=== PATIENT | female | born 1940 | race Caucasian/White ===

== ENCOUNTER 2017-10-02 09:02 | Inpatient (IN) | payer OTHER ==
[~2017-10-02] VITALS: Ht 162.6 cm; Wt 89.4 kg
[2017-10-02 09:02] VITALS: BP_SYST 211
[~2017-10-02 09:02] MED LIST: ATEN100T44 PO; BENA40TA65 PO; GLYB5TAB7 PO; NOR10 PO; SIMV40TA2 PO
[2017-10-02] MEDS ORDERED: NACL 0.9% 1,000 ML IV ONE ×2 (09:09→09:15)
[2017-10-02] MEDS ORDERED: NITROGLYCERIN 1 INCH (GM) OINT. TP ONE (09:15)
[2017-10-02] MEDS ORDERED: MORPHINE 2 MG/ML INJ. SYRINGE IVP ONE (09:15)
[2017-10-02] MEDS ORDERED: METOPROLOL TARTRATE 25 MG TABLET PO ONE (09:15)
[2017-10-02] MEDS ORDERED: ASPIRIN 81 MG TAB.CHEW PO ONE (09:15)
[2017-10-02 09:33] LABS: BASOPHILS % (AUTO) 0.4 % (0.0-2.0); EOSINOPHILS # (AUTO) 0.1 K/uL (0.0-0.4); EOSINOPHILS % (AUTO) 1.7 % (0.0-4.0); HEMATOCRIT 42.7 % (36-48); HEMOGLOBIN 13.8 g/dL (12.0-16.0); LYMPHOCYTES # (AUTO) 2.8 K/uL (1.0-5.5); LYMPHOCYTES % (AUTO) 33.3 % (20.5-51.5); MEAN CORPUSCULAR HEMOGLOBIN 29 pg (27-31); MEAN CORPUSCULAR HGB CONC 32 % (32-36); MEAN CORPUSCULAR VOLUME 89 fL (79.0-98.0); MONOCYTES # (AUTO) 0.7 K/uL (0.0-1.0); MONOCYTES % (AUTO) 7.9 % (1.7-9.3); NEUTROPHILS # (AUTO) 4.7 K/uL (1.8-7.7); NEUTROPHILS % (AUTO) 56.7 % (40.0-70.0); PLATELET COUNT (AUTO) 214 K/uL (130-430); RED BLOOD CELL COUNT(AUTO) 4.81 MIL/uL (4.2-6.2); RED CELL DISTRIBUTION WIDTH 14.6 % (9.0-15.0); WHITE BLOOD COUNT (AUTO) 8.3 K/uL (4.8-10.8)
[2017-10-02] MEDS ORDERED: LORazepam 2 MG/ML VIAL (FOR ER USE) IVP ONE (09:45)
[2017-10-02 09:51] LABS: ANION GAP 12 (5-15); CALCIUM 9.9 mg/dL (8.4-11.0); CHLORIDE 102 mmol/L (98-107); CREATININE 0.86 mg/dL (0.55-1.30); GLUCOSE 190 mg/dL (70-99); POTASSIUM 3.9 mmol/L (3.5-5.1); SODIUM SERUM 140 mmol/L (136-145); UREA NITROGEN, BLOOD 14 mg/dL (8-21)
[2017-10-02 09:56] LABS: PROTHROMBIN TIME 9.7 SECS (9.5-12.5)
[2017-10-02 10:00] LABS: ALANINE AMINOTRANSFERASE 28 U/L (12-78); ALBUMIN 4.2 g/dL (3.4-4.8); ASPARTATE AMINOTRANSFERASE 18 U/L (10-37); TOTAL BILIRUBIN 0.6 mg/dL (0.0-1.0)
[2017-10-02] MEDS ORDERED: ASPI81TA2 PO (10:23)
[2017-10-02] MEDS ORDERED: ALEN70TA51 PO (10:23)
[2017-10-02] MEDS ORDERED: HYDR-3908 PO (10:26)
[2017-10-02] MEDS ORDERED: METO200T3 PO (10:26)
[2017-10-02] MEDS ORDERED: FAMO20TA98 PO (10:26)
[2017-10-02] MEDS ORDERED: FAMO10VI13 IV (10:26)
[2017-10-02] MEDS ORDERED: cloNIDine HCL 0.1 MG TABLET PO PRN (10:30)
[2017-10-02 11:00] VITALS: BP_SYST 143
[2017-10-02] MEDS ORDERED: GLIM2TAB2 PO (11:46)
[2017-10-02] MEDS ORDERED: CHOL200019 PO (13:57)
[2017-10-02 15:28] VITALS: BP_SYST 126
[2017-10-02 20:00] VITALS: BP_SYST 144
[2017-10-03 00:12] VITALS: BP_SYST 131
[2017-10-03 08:10] VITALS: BP_SYST 171
[2017-10-03] MEDS ORDERED: METOPROLOL SUCCINATE 50 MG TAB.SR.24H (TOPROL XL) PO SCH (09:00)
[2017-10-03] MEDS ORDERED: ASPIRIN 81 MG TAB.CHEW PO SCH (09:00)
[2017-10-03] MEDS ORDERED: BENAZEPRIL HCL 20 MG TABLET (LOTENSIN) PO SCH (09:00)
[2017-10-03] MEDS ORDERED: FAMOTIDINE 20 MG TABLET PO SCH (09:00)
[2017-10-03] MEDS ORDERED: GLIMEPIRIDE 2 MG TABLET PO SCH (09:00)
[2017-10-03] MEDS ORDERED: amLODIPine BESYLATE 10 MG TABLET PO SCH (09:00)
[2017-10-03] MEDS ORDERED: SIMVASTATIN 40 MG TABLET PO SCH (09:00)
[2017-10-03] MEDS ORDERED: INSULIN REGULAR, HUMAN 100 UNITS/ML, 10 ML VIAL (novoLIN R) SUBCUT PRN (09:15)
[2017-10-03] MEDS ORDERED: DEXTROSE 50% JECT 50 ML DISP.SYRIN IVP PRN (09:15)
[2017-10-03] MEDS ORDERED: ENALAPRILAT DIHYDRATE 1.25 MG/ML VIAL IVP PRN (10:15)
[2017-10-03] MEDS ORDERED: hydrALAZINE HCL 20 MG/ML VIAL IVP PRN (10:15)
[2017-10-03] MEDS ORDERED: REGADENOSON 0.4 MG/5 ML SYRINGE IVP ONE (11:00)
[2017-10-03 12:20] VITALS: BP_SYST 176
[2017-10-03 16:13] VITALS: BP_SYST 157
[2017-10-03 18:18] VITALS: BP_SYST 157
== END 2017-10-03 18:35 | disposition home or self-care (01) | DRG 313 ==
LOC: SED 09:02 → STU 10:17
PROVIDERS: ADMIT Internal Medicine Hospice and Palliative Medicine; ATTEND Internal Medicine Hospice and Palliative Medicine
DX: R07.89 Other chest pain (principal); I25.10 Atherosclerotic heart disease of native coronary artery without angina pectoris; E11.9 Type 2 diabetes mellitus without complications; I10 Essential (primary) hypertension; R01.1 Cardiac murmur, unspecified; Z96.641 Presence of right artificial hip joint; E78.5 Hyperlipidemia, unspecified; Z82.49 Family history of ischemic heart disease and other diseases of the circulatory system; Z95.5 Presence of coronary angioplasty implant and graft; Z87.891 Personal history of nicotine dependence; Z90.49 Acquired absence of other specified parts of digestive tract; Z79.899 Other long term (current) drug therapy; Z79.82 Long term (current) use of aspirin
CPT/HCPCS: 36415; 71045; 80053; 82962; 83880; 84484; 85025; 85379; 85610-TC; 85730-TC; 93005; 93306; 96361; 96374; 96375; 99285; A9500; J1815; J2060; J2270; J2785; J7030

== ENCOUNTER 2018-02-13 19:13 | Inpatient (IN) | payer OTHER ==
[~2018-02-13] VITALS: Ht 162.6 cm; Wt 86.2 kg
[~2018-02-13 19:13] MED LIST changes: +ASPI-1155 PO; -ATEN100T44 PO; +CHOL200019 PO; +FAMO-132 PO; +GLIM2TAB2 PO; -GLYB5TAB7 PO; +HYDR-3908 PO; +METO200T3 PO
[2018-02-13 19:15] VITALS: BP_SYST 184
--- NOTE | 2018-02-13 19:15 | NUR ---
Placed in room 1 . Placed on phototypesetting equipment monitor, blood pressure machine and pulse oximeter. To gown for exam. Side rails up. Report given to Brent MOSES.
--- NOTE | 2018-02-13 19:20 | NUR ---
#22 gauge angiocath placed to LAC. Use of asceptic technique. Opsite placed over site. Blood return noted. Blood for lab drawn from site. Flushed with 10 cc of normal saline. No evidence of infiltration noted. Patient tolerated well.
--- NOTE | 2018-02-13 19:20 | NUR ---
Patient ambulatory to ED a/o x 4 with c/o left sided chest pain radiating to back. Reports pain is 9/10 sharp unprovoked pain. -SOB -N/V/D. Patient has Hx of cardiac Stents placed in 2009 and 2010. No increased work of breathing. Afebrile.
[2018-02-13] MEDS ORDERED: NITROGLYCERIN 0.4 MG TAB.SUBL SL ONE (20:15)
[2018-02-13] MEDS ORDERED: ASPIRIN 81 MG TAB.CHEW PO ONE (20:15)
[2018-02-13 20:18] LABS: BASOPHILS % (AUTO) 0.5 % (0.0-2.0); EOSINOPHILS # (AUTO) 0.1 K/uL (0.0-0.4); HEMATOCRIT 39.5 % (36-48); HEMOGLOBIN 13.6 g/dL (12.0-16.0); LYMPHOCYTES # (AUTO) 2.6 K/uL (1.0-5.5); LYMPHOCYTES % (AUTO) 36.1 % (20.5-51.5); MEAN CORPUSCULAR HEMOGLOBIN 31 pg (27-31); MEAN CORPUSCULAR HGB CONC 34 % (32-36); MEAN CORPUSCULAR VOLUME 90 fL (79.0-98.0); MONOCYTES # (AUTO) 0.6 K/uL (0.0-1.0); MONOCYTES % (AUTO) 7.7 % (1.7-9.3); NEUTROPHILS # (AUTO) 3.9 K/uL (1.8-7.7); NEUTROPHILS % (AUTO) 53.7 % (40.0-70.0); PLATELET COUNT (AUTO) 233 K/uL (130-430); RED BLOOD CELL COUNT(AUTO) 4.38 MIL/uL (4.2-6.2); RED CELL DISTRIBUTION WIDTH 13.6 % (9.0-15.0); WHITE BLOOD COUNT (AUTO) 7.2 K/uL (4.8-10.8)
--- NOTE | 2018-02-13 20:24 | NUR ---
Radiology at bedside for CXR.
[2018-02-13 20:30] LABS: ANION GAP 9 (5-15); CALCIUM 9.5 mg/dL (8.4-11.0); CHLORIDE 102 mmol/L (98-107); CREATININE 0.94 mg/dL (0.55-1.30); GLUCOSE 228 mg/dL (70-99); POTASSIUM 3.9 mmol/L (3.5-5.1); SODIUM SERUM 137 mmol/L (136-145); UREA NITROGEN, BLOOD 17 mg/dL (8-21)
[2018-02-13 20:35] LABS: PROTHROMBIN TIME 9.8 SECS (9.5-12.5)
[2018-02-13 20:37] LABS: ALANINE AMINOTRANSFERASE 29 U/L (12-78); ALBUMIN 4.1 g/dL (3.4-4.8); ASPARTATE AMINOTRANSFERASE 21 U/L (10-37); TOTAL BILIRUBIN 0.4 mg/dL (0.0-1.0)
--- NOTE | 2018-02-13 21:20 | NUR ---
Patient report relief of chest pain after administration of nitroglycerin tablet. No reports 4/10 pain. Tolerable level for patient.
[2018-02-13 21:38] LABS: BILIRUBIN,URINE NEGATIVE (NEGATIVE); BLOOD, URINE NEGATIVE (NEGATIVE); CLARITY/URINE CLEAR (CLEAR); COLOR,URINE YELLOW (YELLOW); GLUCOSE,URINE NEGATIVE (NEGATIVE); KETONES,URINE NEGATIVE (NEGATIVE); LEUKOCYTE ESTERASE ,URINE 1+ (NEGATIVE); NITRITE, URINE NEGATIVE (NEGATIVE); PH,URINE 5.5 (5.0-8.0); PROTEIN URINE NEGATIVE (NEGATIVE); UROBILINOGEN,URINE 0.2 (0.2-1.0)
[2018-02-13] MEDS ORDERED: NITROGLYCERIN 1 INCH (GM) OINT. TP ONE (21:45)
[2018-02-13] MEDS ORDERED: cefTRIAXone 1 GM IVPB PREMIX 50 ML IV ONE (21:45)
[2018-02-13 21:46] LABS: BACTERIA,URINE FEW /HPF (None Seen); MUCUS,URINE None Seen /LPF (None Seen); RBC,URINE 0-3 /HPF (0-3)
[2018-02-13] MEDS ORDERED: OMEG1CAP PO (21:51)
--- NOTE | 2018-02-13 22:00 | NUR ---
Medication reconciliation completed with information provided by patient. Any prior medication reconciliation on file was reviewed and corrected.
--- NOTE | 2018-02-13 22:30 | NUR ---
End of life care decisions discussed with patient by Dr. Macias. Opportunity for questions and concerns addressed. Patient's code status is Full Code paperwork completed and placed in chart.
--- NOTE | 2018-02-13 22:40 | NUR ---
Patient will be admitted to care of Dr. Machado. Admitted to Telemetry unit. Will go to room 135. Belongings list completed. Summary report printed. Report will be given at bedside. Transfer to Telemetry via ACLS protocol. Licensed nurse present. IV present no signs or symptoms of infiltration.
--- NOTE | 2018-02-13 22:45 | NUR ---
ADMISSION NOTE Received patient from ER via no, received report from MICHEAL MOSES. Patient admitted with diagnosis of chest pain. Patient oriented to hospital routine, call light, toileting and safety-patient verbalized understanding.
[2018-02-13 22:49] VITALS: BP_SYST 170
--- NOTE | 2018-02-13 23:10 | NUR ---
OPENING NOTES Bedside report received from admit nurse. Patient received lying in bed, states that chest pain is 3/10 but tolerable at this time. Breathing is even and unlabored. Patient was transferred from admit room, 135, to her room 130. Patient was able to walk from [facility] to her bed with minimal assistance. Patient denies feeling dizzy or light headed. Call light with patient, instructed to call for any assistance, patient verbalized understanding. Bed alarm is on. Bed is locked and at lowest position. Will continue to monitor.
--- NOTE | 2018-02-14 00:50 | NUR ---
CALLED DR DIAMOND RE:HIGH BP, DIET ORDER, ACCUCHECK AND SLIDING SCALE Dr. Diamond informed about patient's high BP. ordered Catapres 0.1 Q4H PRN for systolic above 160. also made aware that patient doesn't have orders for diet, accucheck, and sliding scale. Dr. Diamond stated that it can be taken care of in the morning. Will carry out orders.
[2018-02-14] MEDS ORDERED: cloNIDine HCL 0.1 MG TABLET PO PRN (01:00)
[2018-02-14 01:06] VITALS: BP_SYST 174
[2018-02-14 02:00] VITALS: BP_SYST 133
--- NOTE | 2018-02-14 02:00 | NUR ---
CALLED DR DIAMOND RE: PAIN MED/REASSESS BP Spoke with Dr. Diamond and informed him that patient is complaining of left arm pain at this time. Dr. Diamond ordered 400 mg Motrin PO PRN. Will carry out order. Patient was reassessed at this time, BP is at 133/66. All of patient's needs met at this time. Call light with patient. Bed alarm on. Will continue to monitor.
[2018-02-14] MEDS: IBUPROFEN 400 MG TABLET PO PRN ×2 (02:25→16:32)
--- NOTE | 2018-02-14 04:00 | NUR ---
ROUNDS Patient in bed sleeping at this time. No s/s of acute distress noted. Breathing is even and unlabored. Call light with patient. Bed alarm on. Will continue to monitor.
[2018-02-14] MEDS ORDERED: DEXTROSE 50% JECT 50 ML DISP.SYRIN IVP PRN (05:45)
[2018-02-14] MEDS ORDERED: INSULIN REGULAR, HUMAN 100 UNITS/ML, 10 ML VIAL (novoLIN R) SUBCUT PRN (05:45)
--- NOTE | 2018-02-14 05:46 | NUR ---
SPOKE WITH FANY FOR CONSULT WITH DR BARRON.
--- NOTE | 2018-02-14 05:50 | NUR ---
ROUNDS Patient sleeping comfortably at this time. No signs of discomfort noted. Chest rise and fall even bilaterally. Call light with patient. Bed alarm on. Will continue to monitor.
--- NOTE | 2018-02-14 06:54 | NUR ---
CLOSING NOTES Patient in bed resting at this time. No s/s of acute distress noted. Breathing is even and unlabored. Patient denies any pain. All of patient's needs met throughout shift. IV site is patent, no signs of infiltration or infection. Skin is warm and dry to touch. No s/s of hypoglycemia. Fall and safety precautions maintained throughout shift. Will continue to monitor until patient care is endorsed to oncoming day shift nurse.
--- NOTE | 2018-02-14 07:40 | NUR ---
OPENING NOTE: MORNING REPORT WAS TAKEN FROM [employer]IDE SALES REPRESENTATIVE NURSE. PATIENT IS ALERT AND ORIENTED X4. MORNING VITALS AND ASSESSMENT WAS DONE. BLOOD PRESSURE LITTLE ELEVATED. WILL GIVE BLOOD PRESSURE MEDS THEN REASSESS. PATIENT NOT COMPLAINING OF CHEST PAIN. ONLY OF PAIN IN LEFT ARM BUT NOT AT MOMENT. PATIENT NOT COMPLAINING OF SHORTNESS OF BREATH. PATIENT IS ON ROOM AIR. PATIENT IS NOT COMPLAINING OF NAUSEA OR VOMITING. PATIENT NOT COMPLAINING OF CONSTIPATION. EDUCATED PATIENT ON IMPORTANCE OF BED ALARM BUT REFUSED TO HAVE IT ON. CALL LIGHT IS IN REACH AND BED IS IN LOWEST POSITION. WILL CONTINUE TO MONITOR.
[2018-02-14 08:04] VITALS: BP_SYST 164
[2018-02-14] MEDS ORDERED: ASPIRIN 81 MG TAB.CHEW PO SCH ×2 (09:00→21:00)
[2018-02-14] MEDS ORDERED: FAMOTIDINE 20 MG TABLET PO SCH (09:00)
[2018-02-14] MEDS ORDERED: BENAZEPRIL HCL 20 MG TABLET (LOTENSIN) PO SCH (09:00)
[2018-02-14] MEDS ORDERED: amLODIPine BESYLATE 10 MG TABLET PO SCH (09:00)
--- NOTE | 2018-02-14 09:04 | NUR ---
: DR. RAMIREZ CALLED AND ASKED WHAT'S GOING ON WITH PATIENT. GAVE UPDATED ON PATIENT.
[2018-02-14 09:24] LABS: CHOLESTEROL 181 mg/dL (<200); HDL CHOLESTEROL 67 mg/dL (>55); LDL CHOLESTEROL 84 mg/dL (<100); TRIGLYCERIDES 182 mg/dL (30-150)
--- NOTE | 2018-02-14 09:28 | NUR ---
: TALKED TO DR. DIAMOND. TOLD HIM PATIENT SAID SHE TAKES HER ASPIRIN AT NIGHT AND THAT SHE TAKES 4 MG INSTEAD OF 2 OF HER GLIMEPIRIDE. SAID IT WAS OKAY FOR ME TO CHANGE IT.
--- NOTE | 2018-02-14 09:30 | NUR ---
OPENING NOTE: MORNING REPORT WAS TAKEN FROM [employer]IC[employer] SPECIALIST NURSE. PATIENT IS ALERT AND ORIENTED X4. MORNING VITALS AND ASSESSMENT WAS DONE. BLOOD PRESSURE LITTLE ELEVATED. WILL GIVE BLOOD PRESSURE MEDS THEN REASSESS. PATIENT NOT COMPLAINING OF CHEST PAIN. ONLY OF PAIN IN LEFT ARM BUT NOT AT MOMENT. PATIENT NOT COMPLAINING OF SHORTNESS OF BREATH. PATIENT IS ON ROOM AIR. PATIENT IS NOT COMPLAINING OF NAUSEA OR VOMITING. PATIENT NOT COMPLAINING OF CONSTIPATION. EDUCATED PATIENT ON IMPORTANCE OF BED ALARM BUT REFUSED TO HAVE IT ON. CALL LIGHT IS IN REACH AND BED IS IN LOWEST POSITION. WILL CONTINUE TO MONITOR.
--- NOTE | 2018-02-14 10:29 | NUR ---
NOTE: RECHECK PATIENT'S BLOOD PRESSURE AFTER MORNING MEDICATIONS. WENT DOWN TO 153/76. PATIENT HAS NO COMPLAINTS OF DISTRESS. GAVE PATIENT SOME TOILETRIES PER REQUEST. WILL CONTINUE TO MONITOR.
[2018-02-14] MEDS ORDERED: GLIMEPIRIDE 2 MG TABLET PO SCH ×2 (11:30)
[2018-02-14 12:15] VITALS: BP_SYST 145
--- NOTE | 2018-02-14 12:22 | NUR ---
NOTE: PATIENT SITTING IN BED WITH NO SIGNS OF DISTRESS. FIXED PATIENT'S IV EARLIER BECAUSE TAPE WAS BUGGING HER. PATIENT SAID IT IS NO LONGER BUGGING HER. PATIENT HAS NO FURTHER REQUESTS. WILL CONTINUE TO MONITOR.
--- NOTE | 2018-02-14 14:02 | NUR ---
NOTE: CHECKED IN ON PATIENT TO SEE IF SHE NEEDED ANYTHING. PATIENT SAID SHE WANTED CHOCOLATE BUT KNOWS SHE CANT HAVE ANY. PATIENT RELAXING IN BED WITH NO SIGNS OF DISTRESS. WILL CONTINUE TO MONITOR.
[2018-02-14 16:20] VITALS: BP_SYST 132
--- NOTE | 2018-02-14 16:36 | NUR ---
NOTE: WENT TO CHECK ON PATIENT TO SEE HOW SHE WAS DOING. PATIENT WAS COMPLAINING OF PAIN IN LEFT ARM/RIB AND HEADACHE. GAVE PATIENT IBUPROFEN. PATIENT WANTED SNACK SO GAVE HER CHOCOLATE PUDDING. PATIENT HAS NOT FURTHER REQUEST AT MOMENT. WILL CONTINUE TO MONITOR.
--- NOTE | 2018-02-14 18:07 | NUR ---
MD: WAS PAGED TO GET DISCHARGE ORDER FOR PATIENT.
--- NOTE | 2018-02-14 18:10 | NUR ---
: DR. ORTIZ CALLED BACK AND SAID IT WAS OKAY FOR PATIENT TO BE DISCHARGED.
[2018-02-14 18:18] VITALS: BP_SYST 145
--- NOTE | 2018-02-14 18:40 | NUR ---
D/C Patient Patient given medication reconciliation form and D/C instructions. Exit Care provided. Patient verbalized understanding. MD discussed with patient the results and treatment provided. Ambulatory with steady gait for discharge to home. Patient in stable condition, ID band removed. IV catheter removed, intact and dressing applied, no active bleeding. Patient educated on pain management. All belongings sent with patient. Patient was wheeled out to front by me and safety put in car.
== END 2018-02-14 18:40 | disposition home or self-care (01) | DRG 313 ==
LOC: SED 19:13 → STU 22:23
PROVIDERS: ADMIT Internal Medicine Hospice and Palliative Medicine; ATTEND Internal Medicine Hospice and Palliative Medicine
DX: R07.89 Other chest pain (principal); I25.10 Atherosclerotic heart disease of native coronary artery without angina pectoris; E11.9 Type 2 diabetes mellitus without complications; I10 Essential (primary) hypertension; Z96.649 Presence of unspecified artificial hip joint; M19.90 Unspecified osteoarthritis, unspecified site; E78.5 Hyperlipidemia, unspecified; Z90.49 Acquired absence of other specified parts of digestive tract; Z90.710 Acquired absence of both cervix and uterus; Z95.5 Presence of coronary angioplasty implant and graft
CPT/HCPCS: 36415; 71045; 80053; 80061; 81000-TC; 82550-TC; 82962; 83880; 84484; 85025; 85610-TC; 85730-TC; 87086; 93005; 96365; 99285; J0696

== ENCOUNTER 2018-04-11 04:40 | Inpatient (IN) | payer OTHER ==
[~2018-04-11] VITALS: Ht 162.6 cm; Wt 90.4 kg
[2018-04-11 04:40] VITALS: BP_SYST 152
[~2018-04-11 04:40] MED LIST changes: -HYDR-3908 PO; -METO200T3 PO; +OMEG1CAP PO
[2018-04-11] MEDS ORDERED: NACL 0.9% 1,000 ML IV ONE (04:51)
[2018-04-11] MEDS ORDERED: ATEN-168 PO (04:56)
[2018-04-11] MEDS ORDERED: GABA-529 PO (04:56)
[2018-04-11] MEDS ORDERED: MORPHINE 2 MG/ML INJ. SYRINGE IVP ONE (05:00)
[2018-04-11 06:39] LABS: BILIRUBIN,URINE NEGATIVE (NEGATIVE); BLOOD, URINE NEGATIVE (NEGATIVE); CLARITY/URINE CLEAR (CLEAR); COLOR,URINE YELLOW (YELLOW); GLUCOSE,URINE NEGATIVE (NEGATIVE); KETONES,URINE 1+ (NEGATIVE); LEUKOCYTE ESTERASE ,URINE NEGATIVE (NEGATIVE); NITRITE, URINE NEGATIVE (NEGATIVE); PH,URINE 5.5 (5.0-8.0); PROTEIN URINE NEGATIVE (NEGATIVE); UROBILINOGEN,URINE 0.2 (0.2-1.0)
[2018-04-11 06:46] LABS: ANION GAP 7 (5-15); CALCIUM 9.1 mg/dL (8.4-11.0); CHLORIDE 103 mmol/L (98-107); CREATININE 0.85 mg/dL (0.55-1.30); GLUCOSE 204 mg/dL (70-99); POTASSIUM 3.7 mmol/L (3.5-5.1); SODIUM SERUM 135 mmol/L (136-145); UREA NITROGEN, BLOOD 17 mg/dL (8-21)
[2018-04-11 06:51] LABS: ALANINE AMINOTRANSFERASE 31 U/L (12-78); ALBUMIN 3.7 g/dL (3.4-4.8); ASPARTATE AMINOTRANSFERASE 18 U/L (10-37); TOTAL BILIRUBIN 0.9 mg/dL (0.0-1.0)
[2018-04-11 06:53] LABS: BASOPHILS # (AUTO) 0.1 K/uL (0.0-0.2); BASOPHILS % (AUTO) 0.4 % (0.0-2.0); EOSINOPHILS % (AUTO) 0.2 % (0.0-4.0); HEMATOCRIT 42.3 % (36-48); HEMOGLOBIN 13.5 g/dL (12.0-16.0); LYMPHOCYTES # (AUTO) 1.6 K/uL (1.0-5.5); LYMPHOCYTES % (AUTO) 11.2 % (20.5-51.5); MEAN CORPUSCULAR HEMOGLOBIN 29 pg (27-31); MEAN CORPUSCULAR HGB CONC 32 % (32-36); MEAN CORPUSCULAR VOLUME 91 fL (79.0-98.0); MONOCYTES # (AUTO) 1.1 K/uL (0.0-1.0); MONOCYTES % (AUTO) 8.1 % (1.7-9.3); NEUTROPHILS # (AUTO) 11.3 K/uL (1.8-7.7); NEUTROPHILS % (AUTO) 80.1 % (40.0-70.0); PLATELET COUNT (AUTO) 222 K/uL (130-430); RED BLOOD CELL COUNT(AUTO) 4.64 MIL/uL (4.2-6.2); RED CELL DISTRIBUTION WIDTH 12.7 % (9.0-15.0)
[2018-04-11 07:00] LABS: WHITE BLOOD COUNT (AUTO) 14.1 K/uL (4.8-10.8)
[2018-04-11 07:02] LABS: PROTHROMBIN TIME 10.2 SECS (9.5-12.5)
[2018-04-11] MEDS ORDERED: CIPROFLOXACIN LACT 400 MG/D5W 200 ML IV SCH ×2 (08:00→21:00)
[2018-04-11] MEDS ORDERED: PANTOPRAZOLE SODIUM 40 MG/VIAL (PROTONIX) IVP ONE (08:00)
[2018-04-11] MEDS ORDERED: CIPROFLOXACIN LACT 400 MG/D5W 200 ML IV ONE ×3 (08:04→21:22)
[2018-04-11] MEDS ORDERED: DEXTROSE 50% JECT 50 ML DISP.SYRIN IVP PRN (08:45)
[2018-04-11] MEDS: amLODIPine BESYLATE 10 MG TABLET PO SCH (09:00)
[2018-04-11] MEDS: GABAPENTIN 100 MG CAPSULE PO SCH ×2 (09:00→21:00)
[2018-04-11 09:08] VITALS: BP_SYST 159
[2018-04-11] MEDS: PANTOPRAZOLE SODIUM 40 MG/VIAL (PROTONIX) IVP SCH ×2 (10:21→21:27)
[2018-04-11] MEDS: FAMOTIDINE 20 MG TABLET PO SCH (10:21)
[2018-04-11] MEDS: ATENOLOL 50 MG TABLET (TENORMIN) PO SCH (10:22)
[2018-04-11] MEDS: BENAZEPRIL HCL 20 MG TABLET (LOTENSIN) PO SCH (10:23)
[2018-04-11] MEDS: NACL 0.9% 1,000 ML IV SCH ×2 (10:23→18:45)
[2018-04-11] MEDS: INSULIN REGULAR, HUMAN 100 UNITS/ML, 10 ML VIAL (novoLIN R) SUBCUT PRN ×3 (11:49→23:59)
[2018-04-11 12:13] LABS: HEMOGLOBIN 13.6 g/dL (12.0-16.0)
[2018-04-11] MEDS ORDERED: DIATR MEGLU/DIATRIZ SOD 30 ML SOLUTION PO ONE (12:50)
[2018-04-11 13:16] VITALS: BP_SYST 140
[2018-04-11] MEDS ORDERED: IOHEXOL 100 ML IV ONE (14:20)
[2018-04-11 16:13] VITALS: BP_SYST 138
[2018-04-11 17:53] LABS: HEMATOCRIT 42.5 % (36-48); HEMOGLOBIN 13.5 g/dL (12.0-16.0)
[2018-04-11 20:30] VITALS: BP_SYST 137
[2018-04-11] MEDS: SIMVASTATIN 40 MG TABLET PO SCH (21:26)
[2018-04-12] MEDS: NACL 0.9% 1,000 ML IV SCH ×3 (00:01→20:33)
[2018-04-12 00:33] LABS: HEMATOCRIT 38.9 % (36-48); HEMOGLOBIN 12.6 g/dL (12.0-16.0)
[2018-04-12 00:49] VITALS: BP_SYST 147
[2018-04-12] MEDS: INSULIN REGULAR, HUMAN 100 UNITS/ML, 10 ML VIAL (novoLIN R) SUBCUT PRN ×2 (06:00→12:13)
[2018-04-12 06:51] LABS: HEMATOCRIT 36.4 % (36-48)
[2018-04-12] MEDS: PANTOPRAZOLE SODIUM 40 MG/VIAL (PROTONIX) IVP SCH ×2 (08:25→20:34)
[2018-04-12] MEDS: BENAZEPRIL HCL 20 MG TABLET (LOTENSIN) PO SCH (08:25)
[2018-04-12] MEDS: ATENOLOL 50 MG TABLET (TENORMIN) PO SCH (08:26)
[2018-04-12] MEDS: FAMOTIDINE 20 MG TABLET PO SCH (08:26)
[2018-04-12] MEDS: GABAPENTIN 100 MG CAPSULE PO SCH ×2 (08:27→20:35)
[2018-04-12] MEDS: amLODIPine BESYLATE 10 MG TABLET PO SCH (08:27)
[2018-04-12 08:41] VITALS: BP_SYST 138
[2018-04-12] MEDS: LEVOFLOXACIN 500 MG/D5W 100 ML IV SCH (10:08)
[2018-04-12] MEDS ORDERED: MORPHINE 2 MG/ML INJ. SYRINGE IVP PRN (10:15)
[2018-04-12] MEDS: metroNIDAZOLE 500 mg/NS 100 ML IV SCH ×3 (11:19→20:39)
[2018-04-12 12:02] VITALS: BP_SYST 147
[2018-04-12 13:07] LABS: HEMATOCRIT 36.1 % (36-48); HEMOGLOBIN 11.9 g/dL (12.0-16.0)
[2018-04-12 16:02] VITALS: BP_SYST 145
[2018-04-12 19:00] VITALS: BP_SYST 130
[2018-04-12 20:00] VITALS: BP_SYST 130
[2018-04-12] MEDS: SIMVASTATIN 40 MG TABLET PO SCH (20:35)
[2018-04-13 00:43] VITALS: BP_SYST 135
[2018-04-13] MEDS: NACL 0.9% 1,000 ML IV SCH ×2 (06:01→20:17)
[2018-04-13] MEDS: metroNIDAZOLE 500 mg/NS 100 ML IV SCH (06:01)
[2018-04-13 07:18] LABS: BASOPHILS # (AUTO) 0.1 K/uL (0.0-0.2); BASOPHILS % (AUTO) 0.5 % (0.0-2.0); EOSINOPHILS # (AUTO) 0.2 K/uL (0.0-0.4); EOSINOPHILS % (AUTO) 1.3 % (0.0-4.0); HEMOGLOBIN 11.1 g/dL (12.0-16.0); LYMPHOCYTES # (AUTO) 2.5 K/uL (1.0-5.5); LYMPHOCYTES % (AUTO) 18.4 % (20.5-51.5); MEAN CORPUSCULAR HEMOGLOBIN 30 pg (27-31); MEAN CORPUSCULAR HGB CONC 33 % (32-36); MEAN CORPUSCULAR VOLUME 92 fL (79.0-98.0); MONOCYTES % (AUTO) 7.1 % (1.7-9.3); NEUTROPHILS # (AUTO) 9.7 K/uL (1.8-7.7); NEUTROPHILS % (AUTO) 72.7 % (40.0-70.0); PLATELET COUNT (AUTO) 162 K/uL (130-430); RED CELL DISTRIBUTION WIDTH 12.8 % (9.0-15.0); WHITE BLOOD COUNT (AUTO) 13.5 K/uL (4.8-10.8)
[2018-04-13 07:24] LABS: ANION GAP 9 (5-15); CALCIUM 8.3 mg/dL (8.4-11.0); CHLORIDE 109 mmol/L (98-107); CREATININE 0.75 mg/dL (0.55-1.30); GLUCOSE 138 mg/dL (70-99); POTASSIUM 3.2 mmol/L (3.5-5.1); SODIUM SERUM 143 mmol/L (136-145); UREA NITROGEN, BLOOD 6 mg/dL (8-21)
[2018-04-13 08:00] VITALS: BP_SYST 130
[2018-04-13] MEDS: PANTOPRAZOLE SODIUM 40 MG/VIAL (PROTONIX) IVP SCH ×2 (08:41→20:18)
[2018-04-13] MEDS: ATENOLOL 50 MG TABLET (TENORMIN) PO SCH (08:42)
[2018-04-13] MEDS: FAMOTIDINE 20 MG TABLET PO SCH (08:42)
[2018-04-13] MEDS: BENAZEPRIL HCL 20 MG TABLET (LOTENSIN) PO SCH (08:43)
[2018-04-13] MEDS: amLODIPine BESYLATE 10 MG TABLET PO SCH (08:43)
[2018-04-13] MEDS: LEVOFLOXACIN 500 MG/D5W 100 ML IV SCH (08:44)
[2018-04-13] MEDS: GABAPENTIN 100 MG CAPSULE PO SCH ×3 (08:48→20:23)
[2018-04-13] MEDS: LEVOFLOXACIN 250 MG TABLET PO SCH (10:00)
[2018-04-13] MEDS: INSULIN REGULAR, HUMAN 100 UNITS/ML, 10 ML VIAL (novoLIN R) SUBCUT PRN ×2 (11:19→17:16)
[2018-04-13 11:23] VITALS: BP_SYST 138
[2018-04-13] MEDS: metroNIDAZOLE 500 MG TABLET PO SCH (14:34)
[2018-04-13 15:49] VITALS: BP_SYST 153
[2018-04-13 19:55] VITALS: BP_SYST 131
[2018-04-13] MEDS: SIMVASTATIN 40 MG TABLET PO SCH (20:18)
[2018-04-13] MEDS: LACTOBACILLUS RHAMNOSUS GG 1 CAP CAPSULE PO SCH (20:18)
[2018-04-13] MEDS ORDERED: POTASSIUM CHLORIDE 40 MEQ in NS 250 ML IV SCH (21:30)
[2018-04-14] MEDS: metroNIDAZOLE 500 MG TABLET PO SCH ×2 (00:06→05:38)
[2018-04-14 00:08] VITALS: BP_SYST 134
[2018-04-14] MEDS ORDERED: KCL 40 mEq in 100 mL (PREMIX) 100 ML IV ONE (00:09)
[2018-04-14 06:26] LABS: BASOPHILS # (AUTO) 0.1 K/uL (0.0-0.2); BASOPHILS % (AUTO) 0.7 % (0.0-2.0); EOSINOPHILS # (AUTO) 0.3 K/uL (0.0-0.4); EOSINOPHILS % (AUTO) 2.5 % (0.0-4.0); HEMATOCRIT 32.4 % (36-48); HEMOGLOBIN 11.1 g/dL (12.0-16.0); LYMPHOCYTES # (AUTO) 2.4 K/uL (1.0-5.5); LYMPHOCYTES % (AUTO) 22.2 % (20.5-51.5); MEAN CORPUSCULAR HEMOGLOBIN 31 pg (27-31); MEAN CORPUSCULAR HGB CONC 34 % (32-36); MEAN CORPUSCULAR VOLUME 91 fL (79.0-98.0); MONOCYTES # (AUTO) 0.8 K/uL (0.0-1.0); MONOCYTES % (AUTO) 7.6 % (1.7-9.3); NEUTROPHILS # (AUTO) 7.1 K/uL (1.8-7.7); PLATELET COUNT (AUTO) 172 K/uL (130-430); RED BLOOD CELL COUNT(AUTO) 3.55 MIL/uL (4.2-6.2); RED CELL DISTRIBUTION WIDTH 12.9 % (9.0-15.0); WHITE BLOOD COUNT (AUTO) 10.7 K/uL (4.8-10.8)
[2018-04-14 06:53] LABS: ALANINE AMINOTRANSFERASE 18 U/L (12-78); ALBUMIN 2.9 g/dL (3.4-4.8); ANION GAP 8 (5-15); ASPARTATE AMINOTRANSFERASE 13 U/L (10-37); CALCIUM 8.5 mg/dL (8.4-11.0); CHLORIDE 111 mmol/L (98-107); CREATININE 0.73 mg/dL (0.55-1.30); GLUCOSE 135 mg/dL (70-99); POTASSIUM 3.9 mmol/L (3.5-5.1); SODIUM SERUM 144 mmol/L (136-145); TOTAL BILIRUBIN 0.5 mg/dL (0.0-1.0); UREA NITROGEN, BLOOD 6 mg/dL (8-21)
[2018-04-14 07:40] VITALS: BP_SYST 157
[2018-04-14] MEDS: LACTOBACILLUS RHAMNOSUS GG 1 CAP CAPSULE PO SCH (08:34)
[2018-04-14] MEDS: GABAPENTIN 100 MG CAPSULE PO SCH (08:35)
[2018-04-14] MEDS: FAMOTIDINE 20 MG TABLET PO SCH (08:35)
[2018-04-14] MEDS: amLODIPine BESYLATE 10 MG TABLET PO SCH (08:36)
[2018-04-14] MEDS: BENAZEPRIL HCL 20 MG TABLET (LOTENSIN) PO SCH (08:37)
[2018-04-14] MEDS: PANTOPRAZOLE SODIUM 40 MG/VIAL (PROTONIX) IVP SCH (08:37)
[2018-04-14] MEDS: ATENOLOL 50 MG TABLET (TENORMIN) PO SCH (08:37)
[2018-04-14 10:13] VITALS: BP_SYST 148
[2018-04-14] MEDS ORDERED: METR500T PO (10:22)
[2018-04-14] MEDS ORDERED: LEVO250T2 PO (10:24)
[2018-04-14] MEDS ORDERED: LACT1CAP57 PO (10:26)
[2018-04-14] MEDS ORDERED: FAMO20TA8 PO (10:27)
[2018-04-14] MEDS: LEVOFLOXACIN 250 MG TABLET PO SCH (10:54)
[2018-04-14] MEDS: INSULIN REGULAR, HUMAN 100 UNITS/ML, 10 ML VIAL (novoLIN R) SUBCUT PRN (11:18)
[2018-04-14 12:08] VITALS: BP_SYST 130
== END 2018-04-14 12:03 | disposition home or self-care (01) | DRG 392 ==
LOC: SED 04:40 → STU 08:34 → SMU 04-13 12:56
PROVIDERS: ADMIT Internal Medicine Hospice and Palliative Medicine; ATTEND Internal Medicine Hospice and Palliative Medicine
DX: K52.9 Noninfective gastroenteritis and colitis, unspecified (principal); K92.2 Gastrointestinal hemorrhage, unspecified; E11.9 Type 2 diabetes mellitus without complications; F19.10 Other psychoactive substance abuse, uncomplicated; I10 Essential (primary) hypertension; I25.10 Atherosclerotic heart disease of native coronary artery without angina pectoris; E86.0 Dehydration; K57.90 Diverticulosis of intestine, part unspecified, without perforation or abscess without bleeding; Z90.710 Acquired absence of both cervix and uterus; Z87.891 Personal history of nicotine dependence; Z98.61 Coronary angioplasty status; Z79.899 Other long term (current) drug therapy; Z79.82 Long term (current) use of aspirin; Z90.49 Acquired absence of other specified parts of digestive tract
CPT/HCPCS: 36415; 80048; 80053; 81003; 82962; 83605; 85018-TC; 85025; 85610-TC; 85730-TC; 87040-TC; 87045-TC; 87046; 87177; 87230-TC; 89055; 96361; 96374; 99285; C9113; J0744; J1815; J1956; J2270; J3480; J3490; J7030; J7050; Q9964; Q9967

== ENCOUNTER 2020-03-20 09:10 | Emergency (ER) | payer OTHER ==
[~2020-03-20] VITALS: Ht 162.6 cm; Wt 85.7 kg
[~2020-03-20 09:10] MED LIST changes: +ATEN-168 PO; +FAMO20TA8 PO; +GABA-529 PO; +GLIM2TAB PO; -GLIM2TAB2 PO; +LACT1CAP57 PO; +LEVO250T2 PO; +METR500T PO
--- NOTE | 2020-03-20 09:10 | NUR ---
Pt walked in to ER with c/o chest pain 5/10 since this morning. Reports h/o stent placement. V/S stable, pt is afebrile. Currently resting in bed, will continue to monitor.
--- NOTE | 2020-03-20 09:10 | NUR ---
Patient to ER bed 3 to gown for evaluation. Side rails up. Report given to CHUCK MOSES.
[2020-03-20 09:11] VITALS: BP_SYST 179
--- NOTE | 2020-03-20 09:15 | NUR ---
EKG performed at BS by RN. Physician given copy of EKG for review.
--- NOTE | 2020-03-20 09:15 | NUR ---
ER Dr. Mendoza at bedside examining patient.
--- NOTE | 2020-03-20 09:20 | NUR ---
# 20 gauge angiocath placed to LFA. Use of asceptic technique. Opsite placed over site. Blood return noted. Blood for lab drawn from site. Flushed with 10 cc of normal saline. No evidence of infiltration noted. Patient tolerated well.
[2020-03-20 09:46] LABS: BASOPHILS % (AUTO) 0.7 % (0.0-2.0); EOSINOPHILS # (AUTO) 0.1 K/uL (0.0-0.4); EOSINOPHILS % (AUTO) 1.7 % (0.0-4.0); HEMATOCRIT 39.9 % (36-48); HEMOGLOBIN 13.8 g/dL (12.0-16.0); LYMPHOCYTES # (AUTO) 2.1 K/uL (1.0-5.5); LYMPHOCYTES % (AUTO) 30.4 % (20.5-51.5); MEAN CORPUSCULAR HEMOGLOBIN 30 pg (27-31); MEAN CORPUSCULAR HGB CONC 35 % (32-36); MEAN CORPUSCULAR VOLUME 88 fL (79.0-98.0); MONOCYTES # (AUTO) 0.5 K/uL (0.0-1.0); MONOCYTES % (AUTO) 6.4 % (1.7-9.3); NEUTROPHILS # (AUTO) 4.3 K/uL (1.8-7.7); NEUTROPHILS % (AUTO) 60.8 % (40.0-70.0); PLATELET COUNT (AUTO) 200 K/uL (130-430); RED BLOOD CELL COUNT(AUTO) 4.56 MIL/uL (4.2-6.2); RED CELL DISTRIBUTION WIDTH 13.3 % (9.0-15.0)
--- NOTE | 2020-03-20 10:00 | NUR ---
Radiology at bedside for CXR
[2020-03-20 10:02] LABS: ANION GAP 7 (5-15); CALCIUM 9.5 mg/dL (8.4-11.0); CHLORIDE 95 mmol/L (98-107); CREATININE 0.94 mg/dL (0.55-1.30); GLUCOSE 251 mg/dL (70-99); POTASSIUM 3.4 mmol/L (3.5-5.1); SODIUM SERUM 131 mmol/L (136-145); UREA NITROGEN, BLOOD 21 mg/dL (8-21)
[2020-03-20 10:07] LABS: ALANINE AMINOTRANSFERASE 41 U/L (12-78); ALBUMIN 4.2 g/dL (3.4-4.8); ASPARTATE AMINOTRANSFERASE 30 U/L (10-37); TOTAL BILIRUBIN 0.7 mg/dL (0.0-1.0)
[2020-03-20] MEDS ORDERED: HYG25 PO (10:44)
[2020-03-20] MEDS ORDERED: IRBE300T40 PO (10:44)
[2020-03-20] MEDS ORDERED: TOPXL100 PO (10:44)
[2020-03-20] MEDS ORDERED: DICY10SO PO (10:44)
[2020-03-20] MEDS ORDERED: GLIM4TAB PO (10:44)
--- NOTE | 2020-03-20 10:47 | NUR ---
Med rec and belongings list completed.
--- NOTE | 2020-03-20 12:35 | NUR ---
Patient given written and verbal discharge instructions and verbalizes understanding. ER MD discussed with patient the results and treatment provided. Patient in stable condition. ID arm band removed. IV catheter removed intact and dressing applied, no active bleeding. No prescriptions given. Patient educated on pain management and to follow up with PMD. Pain Scale 0. Opportunity for questions provided and answered. Medication side effect fact sheet provided.
[2020-03-20 12:38] VITALS: BP_SYST 137
== END 2020-03-20 12:38 | disposition home or self-care (01) ==
LOC: SED 09:10
DX: I24.9 Acute ischemic heart disease, unspecified (principal); I10 Essential (primary) hypertension; E11.9 Type 2 diabetes mellitus without complications; Z79.899 Other long term (current) drug therapy; Z79.82 Long term (current) use of aspirin
CPT/HCPCS: 36415; 71045; 80053; 82962; 84484; 85025; 93005; 99285

== ENCOUNTER 2022-08-28 11:35 | Emergency (ER) | payer OTHER ==
[~2022-08-28] VITALS: Ht 162.6 cm; Wt 68.0 kg
[~2022-08-28 11:35] MED LIST changes: -ATEN-168 PO; -BENA40TA65 PO; -CHOL200019 PO; +DICY10SO PO; -FAMO-132 PO; -FAMO20TA8 PO; -GABA-529 PO; -GLIM2TAB PO; +GLIM4TAB PO; +HYG25 PO; +IRBE300T40 PO; -LEVO250T2 PO; -METR500T PO; +TOPXL100 PO
[2022-08-28 11:40] VITALS: BP_SYST 170
--- NOTE | 2022-08-28 12:27 | NUR ---
Pt ambulates with steady gait to radiology dept.
[2022-08-28 12:59] LABS: BASOPHILS # (AUTO) 0.1 K/uL (0.0-0.2); BASOPHILS % (AUTO) 0.7 % (0.0-2.0); EOSINOPHILS # (AUTO) 0.4 K/uL (0.0-0.4); EOSINOPHILS % (AUTO) 4.2 % (0.0-4.0); HEMATOCRIT 38.1 % (36-48); HEMOGLOBIN 12.8 g/dL (12.0-16.0); LYMPHOCYTES # (AUTO) 2.4 K/uL (1.0-5.5); MEAN CORPUSCULAR HEMOGLOBIN 30 pg (27-31); MEAN CORPUSCULAR HGB CONC 34 % (32-36); MEAN CORPUSCULAR VOLUME 88 fL (79.0-98.0); MONOCYTES # (AUTO) 0.8 K/uL (0.0-1.0); MONOCYTES % (AUTO) 7.8 % (1.7-9.3); NEUTROPHILS % (AUTO) 62.3 % (40.0-70.0); PLATELET COUNT (AUTO) 213 K/uL (130-430); RED BLOOD CELL COUNT(AUTO) 4.34 MIL/uL (4.2-6.2); RED CELL DISTRIBUTION WIDTH 14.5 % (9.0-15.0); WHITE BLOOD COUNT (AUTO) 9.6 K/uL (4.8-10.8)
--- NOTE | 2022-08-28 13:05 | NUR ---
EKG COMPLETED DELIVERED TO MD VERA.
[2022-08-28 13:14] LABS: ANION GAP 14 (5-15); CALCIUM 10.2 mg/dL (8.4-11.0); CHLORIDE 101 mmol/L (98-107); CREATININE 1.01 mg/dL (0.55-1.30); GLUCOSE 139 mg/dL (70-99); UREA NITROGEN, BLOOD 19 mg/dL (8-21)
--- NOTE | 2022-08-28 13:17 | NUR ---
Pt brought in by self from home with , Pt chief complaint chest pain. Pt history of stent replacement. Pt states past 2 days with sharp pain to chest. Pt states pmh of bloodpressure, asthma and diabetic medicines. Pt states uncertain if meds taken this morning.
[2022-08-28 13:21] LABS: ALANINE AMINOTRANSFERASE 24 U/L (12-78); ALBUMIN 4.3 g/dL (3.4-4.8); ASPARTATE AMINOTRANSFERASE 16 U/L (10-37); TOTAL BILIRUBIN 0.6 mg/dL (0.0-1.0)
--- NOTE | 2022-08-28 14:00 | NUR ---
ACCUCHECK: BLOOD SUGAR 137
[2022-08-28 14:22] VITALS: BP_SYST 148
--- NOTE | 2022-08-28 15:00 | NUR ---
ER at bedside examining patient.
--- NOTE | 2022-08-28 16:46 | NUR ---
Pt vital signs stable. pt requests quicker release due to low food intake today. made aware.
--- NOTE | 2022-08-28 17:06 | NUR ---
Patient does not wish to proceed with medical care recommended by . Patient given information related to possible complications, up to and including , which could occur as a result of leaving hospital at this time. Patient verbalizes understanding of risks involved leaving against medical advice. Patient has signed AMA form.
== END 2022-08-28 17:06 | disposition left against medical advice (07) ==
LOC: SED 11:35
DX: R07.89 Other chest pain (principal); J44.9 Chronic obstructive pulmonary disease, unspecified; E11.9 Type 2 diabetes mellitus without complications; I10 Essential (primary) hypertension; Z79.899 Other long term (current) drug therapy
CPT/HCPCS: 36415; 71045; 80053; 82962; 84484; 85025; 93005; 99283